=== PATIENT | female | born 2005 | race African-American/Black ===

== ENCOUNTER 2024-01-24 11:44 | Outpatient (REF) | payer SELFPAY ==
[2024-01-25 08:18] LABS: Sickle Cell Scr NEGATIVE (NEGATIVE)
== END 2024-01-24 11:45 | disposition home or self-care (01) ==
LOC: HO.CHCLDS 11:44
PROVIDERS: Visit Provider Registered Nurse
DX: Z00.00 Encounter for general adult medical examination without abnormal findings (principal)
CPT/HCPCS: 36415; 85660